=== PATIENT | female | born 1960 | race Hispanic/Latino ===

== ENCOUNTER 2017-07-11 09:56 | Outpatient (CLI) | payer OTHER ==
--- NOTE | 2017-07-11 13:39 | Mammography Report ---
BILATERAL DIGITAL SCREENING MAMMOGRAM with CAD and TOMOSYNTHESIS: 07/11/17 CLINICAL: Routine screening. COMPARISON:10/28/15 and 07/15/13 FINDINGS: Breasts are heterogeneously dense, which may obscure small masses. No mass, architectural distortion or suspicious calcifications. IMPRESSION: No mammographic evidence of malignancy. BI-RADS CATEGORY: 1 - - Negative RECOMMENDATION: Routine mammographic screening in one year. COMMENT: Patient follow-up letters are generated by our real trends application.
== END 2017-07-11 09:57 | disposition home or self-care (01) ==
LOC: MAMMO 09:56
PROVIDERS: ATTEND Obstetrics & Gynecology
DX: Z12.31 Encounter for screening mammogram for malignant neoplasm of breast (principal)
CPT/HCPCS: 77063; G0202; 77067